=== PATIENT | female | born 1940 | race Caucasian/White ===

== ENCOUNTER 2019-06-18 12:37 | Observation (INO) ==
[2019-06-18] MEDS ORDERED: ASPIRIN 325 MG TABLET PO STA (13:42)
[2019-06-18] MEDS ORDERED: ENOXAPARIN 40 MG/0.4 ML SYRINGE SUBCUT STA (13:54)
[2019-06-18] MEDS ORDERED: NITROGLYCERIN 2% OINT 1 INCH/GM PACK TOP STA (13:54)
[2019-06-18 14:04] LABS: Basophils % 0.6 % (0.0-0.8); Eosinophils # 0.1 10*3/uL (0.0-0.87); Eosinophils % 1.4 % (0.00-10.9); Immature Granulocytes % 0.4 %; Immature Granulocytes Absolute 0.03 #; Lymphocytes # 1.9 10*3/uL (1.4-4.0); Lymphocytes % 27.1 % (21.3-54.2); Mean Corpuscular HGB Conc 32.6 GM/DL (32-36); Mean Corpuscular Volume 101.4 FL (87-102); Mean Platelet Volume 9.6 FL (9.6-12.0); Monocytes % 5.9 % (1.7-12.7); Neutrophils % 64.6 % (38.7-73.9); Platelet Count 157 T/CUMM (130-400); Red Blood Count 4.24 MC/CUMM (3.8-5.5); Red Cell Distribution Width 11.9 % (9.3-17.3); White Blood Count 7.2 T/CUMM (4-12)
[2019-06-18 14:29] LABS: Albumin 4.2 G/DL (3.4-5.0); Bilirubin,Total 0.4 MG/DL (0.2-1.0); Calcium 9.7 MG/DL (8.5-10.1); Osmolality,Calculated 290.7 MOS/KG (273-304); Total Protein 7.3 G/DL (6.4-8.3)
[2019-06-18] MEDS ORDERED: ALUM/MAG/SIMETH/LIDO VISC 1:1 30 ML BOTTLE PO PRN (14:59)
[2019-06-18] MEDS ORDERED: MORPHINE 4 MG/1 ML VIAL IV PRN (14:59)
[2019-06-18] MEDS ORDERED: ACETAMINOPHEN 325 MG TABLET PO PRN (14:59)
[2019-06-18] MEDS ORDERED: POTASSIUM CHLORIDE 20 MEQ TABLET PO PRN ×2 (14:59)
[2019-06-18] MEDS ORDERED: MAGNESIUM SULF RIDER 2 GM in PREMIX 1 EACH IV PRN (14:59)
[2019-06-18] MEDS ORDERED: BISACODYL 5 MG TABLET PO PRN (14:59)
[2019-06-18] MEDS ORDERED: MAGNESIUM SULF RIDER 4 GM in PREMIX 1 EACH IV PRN (14:59)
[2019-06-18] MEDS ORDERED: ONDANSETRON 4 MG/2 ML VIAL IV PRN (14:59)
[2019-06-18] MEDS ORDERED: ZALEPLON 5 MG CAPSULE PO PRN (14:59)
[2019-06-18] MEDS ORDERED: traMADol 50 MG TABLET PO PRN (14:59)
[2019-06-18] MEDS ORDERED: MAGNESIUM HYDROXIDE SUSP 30 ML UDCUP PO PRN (14:59)
[2019-06-18] MEDS ORDERED: ALPRAZolam 0.25 MG TABLET PO PRN (15:02)
[2019-06-18] MEDS ORDERED: ASPIRIN EC 81 MG TABLET PO SCH (15:30)
[2019-06-18] MEDS: HEPARIN 5,000 UNIT/1 ML VIAL SUBCUT SCH ×2 (16:43→23:12)
[2019-06-18] MEDS: LISINOPRIL 5 MG TABLET PO SCH (16:47)
[2019-06-18] MEDS: PANTOPRAZOLE 40 MG TABLET PO SCH (16:48)
[2019-06-18] MEDS: carvediloL 3.125 MG TABLET PO SCH ×2 (16:48→21:07)
[2019-06-18] MEDS: FAMOTIDINE 20 MG TABLET PO SCH ×2 (16:48→21:06)
[2019-06-18] MEDS ORDERED: rOPINIRole 0.25 MG TABLET PO SCH (21:00)
[2019-06-18] MEDS ORDERED: ROSUVASTATIN 10 MG TABLET PO SCH (21:00)
[2019-06-18] MEDS ORDERED: SERTRALINE 50 MG TABLET PO SCH (21:00)
[2019-06-19 04:42] LABS: Basophils % 0.6 % (0.0-0.8); Eosinophils # 0.1 10*3/uL (0.0-0.87); Eosinophils % 1.6 % (0.00-10.9); Hematocrit 35.8 VOL% (35.7-47.0); Hemoglobin 11.8 GM/DL (12.0-16.0); Immature Granulocytes % 0.1 %; Immature Granulocytes Absolute 0.01 #; Lymphocytes # 2.6 10*3/uL (1.4-4.0); Lymphocytes % 38.3 % (21.3-54.2); Mean Corpuscular Volume 100.6 FL (87-102); Mean Platelet Volume 9.7 FL (9.6-12.0); Monocytes % 6.9 % (1.7-12.7); Neutrophils % 52.5 % (38.7-73.9); Platelet Count 135 T/CUMM (130-400); Red Blood Count 3.56 MC/CUMM (3.8-5.5); Red Cell Distribution Width 11.8 % (9.3-17.3); White Blood Count 6.7 T/CUMM (4-12)
[2019-06-19 05:09] LABS: Albumin 3.4 G/DL (3.4-5.0); Bilirubin,Total 0.7 MG/DL (0.2-1.0); Calcium 8.5 MG/DL (8.5-10.1); Risk Ratio 3.66; Total Protein 5.9 G/DL (6.4-8.3)
[2019-06-19] MEDS: HEPARIN 5,000 UNIT/1 ML VIAL SUBCUT SCH (06:09)
[2019-06-19] MEDS ORDERED: ASPIRIN EC 81 MG TABLET PO SCH (09:00)
[2019-06-19 09:10] VITALS: BP 114/57
[2019-06-19] MEDS: carvediloL 3.125 MG TABLET PO SCH (10:52)
[2019-06-19] MEDS: FAMOTIDINE 20 MG TABLET PO SCH (10:53)
[2019-06-19] MEDS: PANTOPRAZOLE 40 MG TABLET PO SCH (10:53)
[2019-06-19] MEDS: LISINOPRIL 5 MG TABLET PO SCH (10:53)
== END 2019-06-19 11:35 | disposition home or self-care (01) ==
LOC: N.ED 12:37 → N.EDINP 12:37 → N.2W 15:40
PROVIDERS: ADMIT Internal Medicine; ATTEND Internal Medicine

== ENCOUNTER 2020-02-08 13:34 | Inpatient (IN) ==
[2020-02-08 17:39] LABS: Basophils % 0.2 % (0.0-0.8); Hematocrit 22.1 VOL% (35.7-47.0); Hemoglobin 6.7 GM/DL (12.0-16.0); Immature Granulocytes % 1.1 %; Immature Granulocytes Absolute 0.17 #; Lymphocytes # 0.7 10*3/uL (1.4-4.0); Lymphocytes % 4.5 % (21.3-54.2); Mean Corpuscular HGB Conc 30.3 GM/DL (32-36); Mean Platelet Volume 9.9 FL (9.6-12.0); Monocytes % 7.1 % (1.7-12.7); Neutrophils % 87.1 % (38.7-73.9); Platelet Count 379 T/CUMM (130-400); Red Cell Distribution Width 14.6 % (9.3-17.3)
[2020-02-08 17:40] LABS: White Blood Count 15.9 T/CUMM (4-12)
[2020-02-08] MEDS ORDERED: PIPERACILLIN/TAZOBACTAM 3,375 MG in SODIUM CHLORIDE 0.9% 100 ML IV STA (17:56)
[2020-02-08 17:58] LABS: Alanine Aminotransferase 12 U/L (13-56); Albumin 2.4 G/DL (3.4-5.0); Alkaline Phosphatase 78 U/L (45-117); Aspartate Amino Transferase 16 U/L (0-37); Bilirubin,Total < 0.39 MG/DL (0.2-1.0); Blood Urea Nitrogen 13 MG/DL (7-18); Calcium 8.4 MG/DL (8.5-10.1); Estimated Glom Filtration Rate 40 ML/MIN; Glucose 113 MG/DL (74-106); Osmolality,Calculated 266.4 MOS/KG (273-304); Total Protein 6.5 G/DL (6.4-8.3)
[2020-02-08 18:26] LABS: Anisocytosis Slight; Band Neutrophils 1 % (0-10); Hypochromasia Slight; Lymphocytes 6 % (20-55); Microcytosis Slight; Platelet Estimate Normal; Polychromasia Slight; Reactive Lymphocytes Slight; Segmented Neutrophils 90 % (50-85); Total Cells Counted 100
[2020-02-08 18:34] LABS: Apearance,Urine CLOUDY (Clear); Bacteria,Urine Few /HPF (Few); Bilirubin,Urine Negative (Negative); Blood, Urine Small mg/dL (Negative); Glucose,Urine (UA) Negative (Negative); Ketones,Urine Negative (Negative); Nitrite,Urine Positive (Negative); Protein,Urine 30 MG/DL; RBC,Urine 15 /HPF (0-4); Urine Color Yellow (Yellow); Urine Specific Gravity 1.009 (1.001-1.035); Urine Urobilinogen < 2.0 EU/DL (0.2-1.0); WBC,Urine 762 /HPF (0-6)
[2020-02-08 18:36] LABS: INR 1.1; PT Patient Result 11.5 SECS (9.8-11.9); Partial Thromboplastin Time 27.1 SECS (23.9-33.8)
[2020-02-08] MEDS ORDERED: SODIUM CHLORIDE 0.9% 1,000 ML IV STA (19:18)
[2020-02-08] MEDS ORDERED: ACETAMINOPHEN 325 MG TABLET PO PRN (20:04)
[2020-02-08] MEDS ORDERED: DEXTROSE 50% 25 GM/50 ML VIAL IV PRN (20:04)
[2020-02-08] MEDS ORDERED: GLUCAGON 1 MG VIAL IM PRN (20:04)
[2020-02-08] MEDS ORDERED: ALUMINUM/MAGNES/SIMETH MAX STR 30 ML UDCUP PO PRN (20:04)
[2020-02-08] MEDS ORDERED: MORPHINE 4 MG/1 ML VIAL IV PRN (20:04)
[2020-02-08] MEDS ORDERED: NICOTINE 21 MG/24 HR PATCH TRANSDERM PRN (20:04)
[2020-02-08] MEDS ORDERED: SODIUM CHLORIDE 0.9% 1,000 ML IV PRN (20:04)
[2020-02-08] MEDS ORDERED: ONDANSETRON 4 MG/2 ML VIAL IV PRN (20:04)
[2020-02-08] MEDS ORDERED: hydrALAZINE 20 MG/1 ML VIAL IV PRN (20:04)
[2020-02-08] MEDS: SODIUM CHLORIDE 0.9% 1,000 ML IV SCH (22:30)
[2020-02-09 03:26] LABS: Folate 17.8 NG/ML (5.4-24.0); Vitamin B12 1232 PG/ML (211-911)
[2020-02-09 03:33] LABS: Hematocrit 22.1 VOL% (35.7-47.0); Hemoglobin 6.7 GM/DL (12.0-16.0); Mean Corpuscular HGB Conc 30.3 GM/DL (32-36); Red Cell Distribution Width 14.6 % (9.3-17.3); White Blood Count 15.9 T/CUMM (4-12)
[2020-02-09 03:34] LABS: Mean Platelet Volume 9.9 FL (9.6-12.0); Platelet Count 379 T/CUMM (130-400)
[2020-02-09 03:35] LABS: Basophils % 0.2 % (0.0-0.8); Immature Granulocytes % 1.1 %; Immature Granulocytes Absolute 0.17 #; Lymphocytes # 0.7 10*3/uL (1.4-4.0); Lymphocytes % 4.5 % (21.3-54.2); Monocytes % 7.1 % (1.7-12.7); Neutrophils % 87.1 % (38.7-73.9)
[2020-02-09 03:36] LABS: Anisocytosis Slight; Microcytosis Slight; Reactive Lymphocytes Slight
[2020-02-09 03:38] LABS: Total Cells Counted 100
[2020-02-09 03:39] LABS: Band Neutrophils 1 % (0-10); Hypochromasia Slight; Lymphocytes 6 % (20-55); Platelet Estimate Normal; Polychromasia Slight; Segmented Neutrophils 90 % (50-85)
[2020-02-09] MEDS: PIPERACILLIN/TAZOBACTAM 3,375 MG in SODIUM CHLORIDE 0.9% 100 ML IV SCH ×3 (03:48→18:12)
[2020-02-09 03:54] LABS: Sedimentation Rate-Westergren 127 MM/HR (0-30)
[2020-02-09] MEDS: SODIUM CHLORIDE 0.9% 1,000 ML IV SCH (05:45)
[2020-02-09 07:05] LABS: Basophils % 0.2 % (0.0-0.8); Hematocrit 33.5 VOL% (35.7-47.0); Hemoglobin 10.5 GM/DL (12.0-16.0); Immature Granulocytes % 3.7 %; Immature Granulocytes Absolute 0.69 #; Lymphocytes # 1.3 10*3/uL (1.4-4.0); Lymphocytes % 6.8 % (21.3-54.2); Mean Corpuscular HGB Conc 31.3 GM/DL (32-36); Mean Corpuscular Volume 86.1 FL (87-102); Mean Platelet Volume 9.8 FL (9.6-12.0); Monocytes % 5.4 % (1.7-12.7); Neutrophils % 83.9 % (38.7-73.9); Platelet Count 269 T/CUMM (130-400); Red Blood Count 3.89 MC/CUMM (3.8-5.5); Red Cell Distribution Width 14.5 % (9.3-17.3); White Blood Count 18.6 T/CUMM (4-12)
[2020-02-09 07:30] LABS: Albumin 1.9 G/DL (3.4-5.0); Osmolality,Calculated 266.4 MOS/KG (273-304); Total Protein 5.9 G/DL (6.4-8.3)
[2020-02-09 07:53] LABS: Band Neutrophils 1 % (0-10); Hypochromasia Slight; Lymphocytes 7 % (20-55); Microcytosis Slight; Ovalocytes Slight; Platelet Estimate Adequate; Segmented Neutrophils 84 % (50-85); Total Cells Counted 100
[2020-02-09] MEDS ORDERED: ONDANSETRON 4 MG TABLET PO PRN (13:50)
[2020-02-09] MEDS: SERTRALINE 50 MG TABLET PO SCH (21:40)
[2020-02-09] MEDS: rOPINIRole 0.25 MG TABLET PO SCH (21:40)
[2020-02-10] MEDS: SODIUM CHLORIDE 0.9% 1,000 ML IV SCH ×2 (03:21→14:49)
[2020-02-10] MEDS: PIPERACILLIN/TAZOBACTAM 3,375 MG in SODIUM CHLORIDE 0.9% 100 ML IV SCH ×3 (03:21→18:22)
[2020-02-10 05:54] LABS: Basophils # 0.1 10*3/uL (0.0-0.2); Basophils % 0.3 % (0.0-0.8); Eosinophils # 0.1 10*3/uL (0.0-0.87); Eosinophils % 0.7 % (0.00-10.9); Hematocrit 34.1 VOL% (35.7-47.0); Hemoglobin 10.5 GM/DL (12.0-16.0); Immature Granulocytes % 1.2 %; Immature Granulocytes Absolute 0.21 #; Lymphocytes # 1.8 10*3/uL (1.4-4.0); Lymphocytes % 10.2 % (21.3-54.2); Mean Corpuscular HGB Conc 30.8 GM/DL (32-36); Mean Corpuscular Volume 86.5 FL (87-102); Mean Platelet Volume 9.4 FL (9.6-12.0); Monocytes % 4.4 % (1.7-12.7); Neutrophils % 83.2 % (38.7-73.9); Platelet Count 295 T/CUMM (130-400); Red Blood Count 3.94 MC/CUMM (3.8-5.5); Red Cell Distribution Width 14.9 % (9.3-17.3); White Blood Count 17.9 T/CUMM (4-12)
[2020-02-10 06:30] LABS: Calcium 8.2 MG/DL (8.5-10.1); Osmolality,Calculated 273.7 MOS/KG (273-304)
[2020-02-10] MEDS ORDERED: POLYETHYLENE GLYCOL 3350/ELECTROLYTES 4,000 ML BOTTLE PO ONE (18:00)
[2020-02-10] MEDS: SERTRALINE 50 MG TABLET PO SCH (20:30)
[2020-02-10] MEDS: rOPINIRole 0.25 MG TABLET PO SCH (20:32)
[2020-02-11] MEDS: PIPERACILLIN/TAZOBACTAM 3,375 MG in SODIUM CHLORIDE 0.9% 100 ML IV SCH (03:39)
[2020-02-11 05:44] LABS: Hematocrit 32.5 VOL% (35.7-47.0); Hemoglobin 9.9 GM/DL (12.0-16.0); Mean Corpuscular Volume 87.1 FL (87-102); Red Blood Count 3.73 MC/CUMM (3.8-5.5); White Blood Count 12.6 T/CUMM (4-12)
[2020-02-11 05:45] LABS: Basophils % 0.3 % (0.0-0.8); Eosinophils # 0.3 10*3/uL (0.0-0.87); Eosinophils % 2.1 % (0.00-10.9); Immature Granulocytes % 0.6 %; Immature Granulocytes Absolute 0.08 #; Lymphocytes # 1.3 10*3/uL (1.4-4.0); Lymphocytes % 10.4 % (21.3-54.2); Mean Corpuscular HGB Conc 30.5 GM/DL (32-36); Mean Platelet Volume 9.8 FL (9.6-12.0); Monocytes % 4.4 % (1.7-12.7); Neutrophils % 82.2 % (38.7-73.9); Platelet Count 323 T/CUMM (130-400); Red Cell Distribution Width 15.3 % (9.3-17.3)
[2020-02-11] MEDS ORDERED: propofoL 200 MG/20 ML VIAL IV ONE (09:00)
[2020-02-11] MEDS ORDERED: LIDOCAINE 100 MG/5 ML SYRINGE ONE (09:00)
[2020-02-11] MEDS: rOPINIRole 0.25 MG TABLET PO SCH (21:38)
[2020-02-11] MEDS: SERTRALINE 50 MG TABLET PO SCH (21:39)
[2020-02-11] MEDS: AMOXICILLIN/CLAV 875 MG TABLET PO SCH (21:39)
[2020-02-12 06:02] LABS: Basophils % 0.3 % (0.0-0.8); Eosinophils # 0.3 10*3/uL (0.0-0.87); Eosinophils % 2.5 % (0.00-10.9); Hemoglobin 9.9 GM/DL (12.0-16.0); Immature Granulocytes % 0.7 %; Immature Granulocytes Absolute 0.07 #; Lymphocytes # 1.6 10*3/uL (1.4-4.0); Lymphocytes % 15.4 % (21.3-54.2); Mean Corpuscular HGB Conc 30.9 GM/DL (32-36); Mean Corpuscular Volume 85.1 FL (87-102); Mean Platelet Volume 9.5 FL (9.6-12.0); Monocytes % 5.7 % (1.7-12.7); Neutrophils % 75.4 % (38.7-73.9); Platelet Count 321 T/CUMM (130-400); Red Blood Count 3.76 MC/CUMM (3.8-5.5); Red Cell Distribution Width 15.2 % (9.3-17.3); White Blood Count 10.1 T/CUMM (4-12)
[2020-02-12 06:36] LABS: Calcium 8.1 MG/DL (8.5-10.1); Osmolality,Calculated 273.5 MOS/KG (273-304)
[2020-02-12] MEDS: AMOXICILLIN/CLAV 875 MG TABLET PO SCH ×2 (08:39→20:22)
[2020-02-12 09:32] LABS: Hemoglobin A1 (Alkaline) 97.3 % (96.5-98.5); Hemoglobin A2 (Alkaline) 2.7 % (1.5-3.5)
[2020-02-12] MEDS: rOPINIRole 0.25 MG TABLET PO SCH (20:22)
[2020-02-12] MEDS: SERTRALINE 50 MG TABLET PO SCH (20:22)
[2020-02-13 05:13] LABS: Basophils % 0.4 % (0.0-0.8); Eosinophils # 0.2 10*3/uL (0.0-0.87); Eosinophils % 2.5 % (0.00-10.9); Hematocrit 34.3 VOL% (35.7-47.0); Immature Granulocytes % 0.4 %; Immature Granulocytes Absolute 0.04 #; Lymphocytes # 1.6 10*3/uL (1.4-4.0); Lymphocytes % 17.2 % (21.3-54.2); Mean Corpuscular HGB Conc 32.1 GM/DL (32-36); Mean Corpuscular Volume 82.5 FL (87-102); Mean Platelet Volume 9.5 FL (9.6-12.0); Monocytes % 7.5 % (1.7-12.7); Platelet Count 332 T/CUMM (130-400); Red Blood Count 4.16 MC/CUMM (3.8-5.5); White Blood Count 9.6 T/CUMM (4-12)
[2020-02-13 05:28] LABS: Calcium 8.5 MG/DL (8.5-10.1); Osmolality,Calculated 280.1 MOS/KG (273-304)
[2020-02-13] MEDS ORDERED: POTASSIUM CHLORIDE RIDER 10 MEQ in PREMIX 1 EACH IV PRN (07:20)
[2020-02-13] MEDS: MAGNESIUM SULF RIDER 2 GM in PREMIX 1 EACH IV PRN ×2 (07:53→10:01)
[2020-02-13] MEDS: POTASSIUM CHLORIDE 20 MEQ TABLET PO PRN ×4 (08:28→12:26)
[2020-02-13] MEDS: AMOXICILLIN/CLAV 875 MG TABLET PO SCH (08:29)
[2020-02-13 17:14] VITALS: BP 124/68
== END 2020-02-13 16:55 | disposition home health service (06) | DRG 375 ==
LOC: N.ED 13:34 → N.EDINP 20:04 → SUATTDRO 20:04 → N.EDINP 23:11 → N.TELES 23:32
PROVIDERS: ADMIT Internal Medicine Geriatric Medicine; ATTEND Internal Medicine
PROC: COLONBX (2020-02-11 06:05)

== ENCOUNTER 2020-03-18 05:52 | Inpatient (IN) ==
[2020-03-12 10:55] LABS: Basophils # 0.1 10*3/uL (0.0-0.2); Basophils % 0.8 % (0.0-0.8); Eosinophils # 0.1 10*3/uL (0.0-0.87); Eosinophils % 1.9 % (0.00-10.9); Hematocrit 37.1 VOL% (35.7-47.0); Hemoglobin 11.3 GM/DL (12.0-16.0); Immature Granulocytes % 0.3 %; Immature Granulocytes Absolute 0.02 #; Lymphocytes # 1.9 10*3/uL (1.4-4.0); Lymphocytes % 30.3 % (21.3-54.2); Mean Corpuscular HGB Conc 30.5 GM/DL (32-36); Mean Corpuscular Volume 90.7 FL (87-102); Mean Platelet Volume 9.9 FL (9.6-12.0); Monocytes % 7.7 % (1.7-12.7); Platelet Count 163 T/CUMM (130-400); Red Blood Count 4.09 MC/CUMM (3.8-5.5); Red Cell Distribution Width 19.4 % (9.3-17.3); White Blood Count 6.4 T/CUMM (4-12)
[2020-03-12 11:26] LABS: Calcium 8.8 MG/DL (8.5-10.1); Osmolality,Calculated 283.1 MOS/KG (273-304)
[~2020-03-18 05:52] MED LIST: ERTAPENEM 1,000 MG VIAL ONE
[2020-03-18] MEDS ORDERED: ERTAPENEM 1,000 MG in SODIUM CHLORIDE 0.9% 100 ML IV ONE (06:30)
[2020-03-18] MEDS: LACTATED RINGERS 1,000 ML IV SCH ×2 (07:46→17:15)
[2020-03-18] MEDS ORDERED: BUPIVACAINE MPF 0.5% /EPI 30 ML VIAL ONE (09:56)
[2020-03-18] MEDS ORDERED: fentaNYL 100 MCG/2 ML VIAL ONE (09:56)
[2020-03-18] MEDS ORDERED: DEXAMETHASONE 4 MG/1 ML VIAL ONE ×2 (10:06→14:39)
[2020-03-18] MEDS ORDERED: INDOCYANINE GREEN 25 MG VIAL IV ONE (12:39)
[2020-03-18] MEDS ORDERED: TISSUE ADHESIVE 1 EACH APPLICATOR TOP ONE (12:40)
[2020-03-18] MEDS ORDERED: HYDROmorphone 2 MG/1 ML VIAL IV PRN ×2 (14:25→15:20)
[2020-03-18] MEDS ORDERED: ONDANSETRON 4 MG/2 ML VIAL IV PRN ×2 (14:25→15:20)
[2020-03-18] MEDS ORDERED: propofoL 200 MG/20 ML VIAL IV ONE (14:38)
[2020-03-18] MEDS ORDERED: ALBUMIN 5% 12.5 GM/250 ML VIAL IV ONE (14:39)
[2020-03-18] MEDS ORDERED: PHENYLEPHRINE 1 MG/10 ML SYRINGE IV ONE (14:39)
[2020-03-18] MEDS ORDERED: SEVOFLURANE 1 UNIT/15 MINUTE INH ONE (14:39)
[2020-03-18] MEDS ORDERED: GLYCOPYRROLATE 0.4 MG/2 ML VIAL ONE (14:39)
[2020-03-18] MEDS ORDERED: NEOSTIGMINE 10 MG/10 ML VIAL ONE (14:40)
[2020-03-18] MEDS ORDERED: ROCURONIUM 100 MG/10 ML VIAL IV ONE (14:40)
[2020-03-18] MEDS ORDERED: ONDANSETRON 4 MG/2 ML VIAL ONE (15:13)
[2020-03-18] MEDS ORDERED: HYDROmorphone 2 MG/1 ML VIAL ONE (15:13)
[2020-03-18] MEDS: KETOROLAC 30 MG/1 ML VIAL IV SCH ×2 (17:15→21:17)
[2020-03-19] MEDS: KETOROLAC 30 MG/1 ML VIAL IV SCH ×4 (01:30→21:11)
[2020-03-19] MEDS: LACTATED RINGERS 1,000 ML IV SCH ×4 (01:30→21:11)
[2020-03-19 06:01] LABS: Basophils % 0.1 % (0.0-0.8); Hemoglobin 9.6 GM/DL (12.0-16.0); Immature Granulocytes % 0.4 %; Immature Granulocytes Absolute 0.05 #; Lymphocytes # 1.3 10*3/uL (1.4-4.0); Lymphocytes % 10.2 % (21.3-54.2); Mean Corpuscular Volume 88.5 FL (87-102); Mean Platelet Volume 10.5 FL (9.6-12.0); Monocytes % 5.5 % (1.7-12.7); Neutrophils % 83.8 % (38.7-73.9); Platelet Count 137 T/CUMM (130-400); Red Blood Count 3.39 MC/CUMM (3.8-5.5); Red Cell Distribution Width 19.8 % (9.3-17.3); White Blood Count 12.5 T/CUMM (4-12)
[2020-03-19 07:14] LABS: Calcium 8.8 MG/DL (8.5-10.1); Osmolality,Calculated 280.4 MOS/KG (273-304)
[2020-03-19] MEDS ORDERED: ACETAMINOPHEN 325 MG TABLET PO PRN (08:40)
[2020-03-19] MEDS: ENOXAPARIN 40 MG/0.4 ML SYRINGE SUBCUT SCH (09:47)
[2020-03-19] MEDS ORDERED: rOPINIRole 0.25 MG TABLET PO SCH (21:00)
[2020-03-19] MEDS ORDERED: SERTRALINE 50 MG TABLET PO SCH (21:00)
[2020-03-20] MEDS: KETOROLAC 30 MG/1 ML VIAL IV SCH ×2 (02:13→09:14)
[2020-03-20 05:13] LABS: Basophils % 0.2 % (0.0-0.8); Eosinophils % 0.2 % (0.00-10.9); Hematocrit 26.9 VOL% (35.7-47.0); Hemoglobin 8.1 GM/DL (12.0-16.0); Immature Granulocytes % 0.5 %; Immature Granulocytes Absolute 0.05 #; Lymphocytes # 1.2 10*3/uL (1.4-4.0); Lymphocytes % 12.8 % (21.3-54.2); Mean Corpuscular HGB Conc 30.1 GM/DL (32-36); Mean Corpuscular Volume 92.8 FL (87-102); Mean Platelet Volume 10.8 FL (9.6-12.0); Monocytes % 3.4 % (1.7-12.7); Neutrophils % 82.9 % (38.7-73.9); Platelet Count 106 T/CUMM (130-400); Red Cell Distribution Width 20.4 % (9.3-17.3); White Blood Count 9.7 T/CUMM (4-12)
[2020-03-20] MEDS: LACTATED RINGERS 1,000 ML IV SCH ×2 (05:52→09:29)
[2020-03-20] MEDS ORDERED: MULTIVITAMIN (CENTRUM) TABLET PO SCH (09:00)
[2020-03-20] MEDS: ENOXAPARIN 40 MG/0.4 ML SYRINGE SUBCUT SCH (09:16)
[2020-03-20 11:15] VITALS: BP 119/86
[2020-03-20 12:00] LABS: Hematocrit 26.3 VOL% (35.7-47.0)
== END 2020-03-20 14:43 | disposition home health service (06) | DRG 331 ==
LOC: N.OR 05:52 → N.SDSINP 05:54 → N.TELEN 16:35
PROVIDERS: ADMIT Student in an Organized Health Care Education/Training Program; ATTEND Student in an Organized Health Care Education/Training Program

== ENCOUNTER 2020-04-28 14:09 | Observation (INO) ==
[2020-04-28] MEDS ORDERED: SODIUM CHLORIDE 0.9% 1,000 ML IV STA (14:44)
[2020-04-28] MEDS ORDERED: PROMETHAZINE 25 MG/1 ML VIAL IM STA (14:44)
[2020-04-28 15:22] LABS: Basophils % 0.4 % (0.0-0.8); Hematocrit 30.4 VOL% (35.7-47.0); Hemoglobin 9.6 GM/DL (12.0-16.0); Immature Granulocytes % 0.4 %; Immature Granulocytes Absolute 0.03 #; Lymphocytes # 2.1 10*3/uL (1.4-4.0); Lymphocytes % 24.8 % (21.3-54.2); Mean Corpuscular HGB Conc 31.6 GM/DL (32-36); Mean Corpuscular Volume 93.8 FL (87-102); Mean Platelet Volume 10.1 FL (9.6-12.0); Monocytes % 5.9 % (1.7-12.7); Neutrophils % 68.5 % (38.7-73.9); Platelet Count 324 T/CUMM (130-400); Red Blood Count 3.24 MC/CUMM (3.8-5.5); Red Cell Distribution Width 14.7 % (9.3-17.3); White Blood Count 8.3 T/CUMM (4-12)
[2020-04-28 15:40] LABS: Albumin 2.8 G/DL (3.4-5.0); Bilirubin,Total 0.5 MG/DL (0.2-1.0); Calcium 8.5 MG/DL (8.5-10.1); Osmolality,Calculated 267.1 MOS/KG (273-304); Total Protein 6.4 G/DL (6.4-8.3)
[2020-04-28 17:02] LABS: Apearance,Urine CLEAR (Clear); Bacteria,Urine Occasional /HPF (Few); Bilirubin,Urine Negative (Negative); Blood, Urine Negative (Negative); Glucose,Urine (UA) Negative (Negative); Ketones,Urine 5 mg/dL (Negative); Nitrite,Urine Negative (Negative); Protein,Urine Negative; RBC,Urine 4 /HPF (0-4); Squamous Epithelial Cell,Urine Occasional /HPF (0-10); Urine Color Straw (Yellow); Urine Specific Gravity 1.004 (1.001-1.035); Urine Urobilinogen < 2.0 EU/DL (0.2-1.0); WBC,Urine 10 /HPF (0-6)
[2020-04-28] MEDS ORDERED: ONDANSETRON 4 MG/2 ML VIAL IV PRN (18:12)
[2020-04-28] MEDS ORDERED: GLUCAGON 1 MG VIAL IM PRN (18:12)
[2020-04-28] MEDS ORDERED: DEXTROSE 50% 25 GM/50 ML VIAL IV PRN (18:12)
[2020-04-28] MEDS ORDERED: CELECOXIB 200 MG CAPSULE PO PRN (18:20)
[2020-04-28] MEDS ORDERED: ONDANSETRON ODT 4 MG TABLET PO PRN (21:08)
[2020-04-28] MEDS: METOCLOPRAMIDE 10 MG TABLET PO SCH (21:12)
[2020-04-28] MEDS: CIPROFLOXACIN INJ 400 MG in PREMIX 1 EACH IV SCH (21:40)
[2020-04-28] MEDS: rOPINIRole 0.25 MG TABLET PO SCH (22:07)
[2020-04-28] MEDS: SERTRALINE 50 MG TABLET PO SCH (22:07)
[2020-04-28] MEDS: DEXT 5% NACL 0.9% KCL 20 MEQ 20 MEQ/1,000 ML BAG IV SCH (22:41)
[2020-04-29] MEDS: DEXT 5% NACL 0.9% KCL 20 MEQ 20 MEQ/1,000 ML BAG IV SCH ×2 (04:35→20:14)
[2020-04-29 05:10] LABS: Basophils % 0.5 % (0.0-0.8); Eosinophils % 0.3 % (0.00-10.9); Hematocrit 28.1 VOL% (35.7-47.0); Hemoglobin 8.8 GM/DL (12.0-16.0); Immature Granulocytes % 0.4 %; Immature Granulocytes Absolute 0.03 #; Lymphocytes % 25.2 % (21.3-54.2); Mean Corpuscular HGB Conc 31.3 GM/DL (32-36); Mean Corpuscular Volume 94.6 FL (87-102); Mean Platelet Volume 9.6 FL (9.6-12.0); Monocytes % 6.6 % (1.7-12.7); Platelet Count 310 T/CUMM (130-400); Red Blood Count 2.97 MC/CUMM (3.8-5.5); Red Cell Distribution Width 14.6 % (9.3-17.3); White Blood Count 7.8 T/CUMM (4-12)
[2020-04-29 05:27] LABS: Calcium 8.3 MG/DL (8.5-10.1); Osmolality,Calculated 271.8 MOS/KG (273-304)
[2020-04-29] MEDS ORDERED: POTASSIUM CHLORIDE 20 MEQ TABLET PO ONE (08:57)
[2020-04-29] MEDS: METOCLOPRAMIDE 10 MG TABLET PO SCH ×4 (09:36→20:55)
[2020-04-29] MEDS: TAMSULOSIN 0.4 MG CAPSULE PO SCH (09:37)
[2020-04-29] MEDS: CIPROFLOXACIN INJ 400 MG in PREMIX 1 EACH IV SCH ×2 (09:37→22:26)
[2020-04-29] MEDS: ENOXAPARIN 40 MG/0.4 ML SYRINGE SUBCUT SCH (10:48)
[2020-04-29] MEDS: MEGESTROL 400 MG PO SCH (13:41)
[2020-04-29] MEDS ORDERED: SCOPOLAMINE 1.5 MG PATCH TRANSDERM SCH (16:00)
[2020-04-29] MEDS: SERTRALINE 50 MG TABLET PO SCH (20:55)
[2020-04-29] MEDS: rOPINIRole 0.25 MG TABLET PO SCH (20:55)
[2020-04-30 05:26] LABS: Basophils % 0.5 % (0.0-0.8); Eosinophils # 0.1 10*3/uL (0.0-0.87); Hematocrit 25.9 VOL% (35.7-47.0); Hemoglobin 8.2 GM/DL (12.0-16.0); Immature Granulocytes % 0.2 %; Immature Granulocytes Absolute 0.01 #; Lymphocytes # 2.5 10*3/uL (1.4-4.0); Lymphocytes % 39.9 % (21.3-54.2); Mean Corpuscular HGB Conc 31.7 GM/DL (32-36); Mean Corpuscular Volume 94.2 FL (87-102); Mean Platelet Volume 9.9 FL (9.6-12.0); Monocytes % 8.1 % (1.7-12.7); Neutrophils % 50.3 % (38.7-73.9); Platelet Count 312 T/CUMM (130-400); Red Blood Count 2.75 MC/CUMM (3.8-5.5); Red Cell Distribution Width 14.8 % (9.3-17.3); White Blood Count 6.1 T/CUMM (4-12)
[2020-04-30] MEDS: DEXT 5% NACL 0.9% KCL 20 MEQ 20 MEQ/1,000 ML BAG IV SCH ×5 (05:37→23:33)
[2020-04-30 05:49] LABS: Osmolality,Calculated 278.1 MOS/KG (273-304)
[2020-04-30 05:55] LABS: % Iron Saturation 13.1 % (18-50); Ferritin 75.7 ng/ml (8-252)
[2020-04-30] MEDS ORDERED: MAGNESIUM SULF RIDER 2 GM in PREMIX 1 EACH IV ONE (08:24)
[2020-04-30] MEDS ORDERED: IRON SUCROSE 300 MG in SODIUM CHLORIDE 0.9% 100 ML IV ONE (08:26)
[2020-04-30] MEDS: TAMSULOSIN 0.4 MG CAPSULE PO SCH ×2 (08:33→09:13)
[2020-04-30] MEDS: ENOXAPARIN 40 MG/0.4 ML SYRINGE SUBCUT SCH (08:33)
[2020-04-30] MEDS: CIPROFLOXACIN INJ 400 MG in PREMIX 1 EACH IV SCH ×2 (08:34→21:38)
[2020-04-30] MEDS: METOCLOPRAMIDE 10 MG TABLET PO SCH ×4 (08:34→21:37)
[2020-04-30] MEDS: MAGNESIUM CHLORIDE 64 MG TABLET PO SCH (08:35)
[2020-04-30] MEDS: FERROUS SULFATE 325 MG TABLET PO SCH (09:09)
[2020-04-30 10:29] LABS: Folate 12.2 NG/ML (5.4-24.0)
[2020-04-30] MEDS: MEGESTROL 400 MG PO SCH (12:08)
[2020-04-30] MEDS: rOPINIRole 0.25 MG TABLET PO SCH (21:37)
[2020-04-30] MEDS: SERTRALINE 50 MG TABLET PO SCH (21:38)
[2020-05-01 06:20] LABS: Basophils % 0.6 % (0.0-0.8); Eosinophils # 0.1 10*3/uL (0.0-0.87); Eosinophils % 1.6 % (0.00-10.9); Hematocrit 25.5 VOL% (35.7-47.0); Hemoglobin 7.9 GM/DL (12.0-16.0); Immature Granulocytes % 0.4 %; Immature Granulocytes Absolute 0.03 #; Lymphocytes # 2.2 10*3/uL (1.4-4.0); Lymphocytes % 31.4 % (21.3-54.2); Mean Corpuscular Volume 97.7 FL (87-102); Mean Platelet Volume 10.2 FL (9.6-12.0); Monocytes % 7.8 % (1.7-12.7); Neutrophils % 58.2 % (38.7-73.9); Platelet Count 336 T/CUMM (130-400); Red Blood Count 2.61 MC/CUMM (3.8-5.5); Red Cell Distribution Width 14.7 % (9.3-17.3)
[2020-05-01 06:36] LABS: Calcium 7.8 MG/DL (8.5-10.1); Osmolality,Calculated 277.3 MOS/KG (273-304)
[2020-05-01] MEDS: DEXT 5% NACL 0.9% KCL 20 MEQ 20 MEQ/1,000 ML BAG IV SCH ×3 (08:06→17:00)
[2020-05-01] MEDS: FERROUS SULFATE 325 MG TABLET PO SCH (09:51)
[2020-05-01] MEDS: METOCLOPRAMIDE 10 MG TABLET PO SCH ×2 (09:52→13:12)
[2020-05-01] MEDS: MEGESTROL 400 MG PO SCH (09:52)
[2020-05-01] MEDS: TAMSULOSIN 0.4 MG CAPSULE PO SCH (09:52)
[2020-05-01] MEDS: MAGNESIUM CHLORIDE 64 MG TABLET PO SCH (09:52)
[2020-05-01] MEDS: ENOXAPARIN 40 MG/0.4 ML SYRINGE SUBCUT SCH (09:52)
[2020-05-01] MEDS: CIPROFLOXACIN INJ 400 MG in PREMIX 1 EACH IV SCH (09:53)
[2020-05-01 16:50] VITALS: BP 131/60
[2020-05-02 19:15] LABS: CDT Result Negative (Negative); CDT Specimen Source STOOL
== END 2020-05-01 16:33 | disposition home or self-care (01) ==
LOC: EDBD → EDUNIT# → N.EDINP 14:09 → N.ED 14:09 → N.3E 04-29 03:19
PROVIDERS: ADMIT Hospitalist; ATTEND Hospitalist